=== PATIENT | female | born 1960 | race Caucasian/White ===

== ENCOUNTER 2017-05-03 18:02 | Inpatient (IN) | payer SELFPAY ==
[2017-05-03 19:21] LABS: BASOPHILS 0.1 % (0-2); EOSINOPHILS 0 % (0-7); HEMATOCRIT 47.1 % (36.0-48.0); HEMOGLOBIN 16.2 g/dL (12-16); IMMATURE GRANULOCYTES 0.3 % (0-5); LYMPHOCYTES 7.4 % (15-50); MCH 26.5 pg (26.0-34.0); MCHC 34.4 g/dL (31.0-37.0); MEAN PLATELET VOLUME 10.7 fL (7.4-10.4); MONOCYTES 3.8 % (2-11); NEUTROPHILS 88.4 % (40-80); PLATELET COUNT 235 10x3/uL (130-400); RBC 6.12 10x6/uL (4.00-5.40); RDW 13.7 % (11.5-14.5); WBC 15.4 10x3/uL (4.8-10.8)
[2017-05-03 20:34] LABS: ALBUMIN 3.5 g/dL (3.4-5.0); ALKALINE PHOSPHATASE 213 U/L (46-116); ALT (SGPT) 105 U/L (10-68); BILIRUBIN - TOTAL 0.51 mg/dL (0.2-1.3); CALC OSMOLALITY 275 mosm/kg (275-300); CALCIUM 9.2 mg/dL (8.5-10.1); CARBON DIOXIDE 23.1 mmol/L (21.0-32.0); CHLORIDE - SERUM 100 mmol/L (98-107); CREATININE - SERUM 0.7 mg/dL (0.6-1.3); GLUCOSE 156 mg/dL (74-106); POTASSIUM - SERUM 4.7 mmol/L (3.5-5.1); PROTEIN - SERUM 7.4 g/dL (6.4-8.2); SODIUM 136 mmol/L (136-145); UREA NITROGEN 14 mg/dL (7-18); eGFR NON AFRICAN AMERICAN > 90 mL/min (90-120)
[2017-05-03 21:05] LABS: AMYLASE - SERUM 2652 U/L (25-115); LIPASE 14826 U/L (73-393)
[2017-05-03 21:16] LABS: APPEARANCE CLEAR (CLEAR); BILIRUBIN NEGATIVE (NEGATIVE); COLOR YELLOW (YELLOW); GLUCOSE NEGATIVE (NEGATIVE); KETONE NEGATIVE (NEGATIVE); NITRITE NEGATIVE (NEGATIVE); PROTEIN TRACE mg/dL (NEGATIVE); UROBILINOGEN NORMAL (NORMAL)
[2017-05-03 21:17] LABS: EPITHELIAL CELLS 0-5 /hpf (0-5); RED CELLS - URINE 0-5 /hpf (0-5); WHITE CELLS - URINE 0-5 /hpf (0-5)
[2017-05-03 21:18] LABS: BACTERIA MODERATE /hpf (NONE SEEN)
[2017-05-03 21:43] LABS: APTT 32.5 SECONDS (22.8-39.4); INR 1.03 (0.85-1.17); PROTIME 13.4 SECONDS (11.6-15.0)
[2017-05-04] VITALS (7 sets, daily range): BP systolic 121–162; BP diastolic 54–78; BMI 32.4; BMI 32.1
--- NOTE | 2017-05-04 00:03 | NUR ---
RECEIVED REPORT FROM SRINI BARNHART.
[2017-05-04] MEDS ORDERED: PRINIVIL10 MG PO (01:12)
[2017-05-04 04:54] LABS: BASOPHILS 0.1 % (0-2); EOSINOPHILS 0.1 % (0-7); HEMATOCRIT 45.2 % (36.0-48.0); HEMOGLOBIN 15.2 g/dL (12-16); IMMATURE GRANULOCYTES 0.2 % (0-5); LYMPHOCYTES 8.4 % (15-50); MCH 26.4 pg (26.0-34.0); MCHC 33.6 g/dL (31.0-37.0); MCV 78.6 fL (80.0-100.0); MEAN PLATELET VOLUME 10.9 fL (7.4-10.4); MONOCYTES 6.6 % (2-11); NEUTROPHILS 84.6 % (40-80); PLATELET COUNT 205 10x3/uL (130-400); RBC 5.75 10x6/uL (4.00-5.40); RDW 14.1 % (11.5-14.5); WBC 16.2 10x3/uL (4.8-10.8)
[2017-05-04 05:03] LABS: ALBUMIN 3.1 g/dL (3.4-5.0); ALKALINE PHOSPHATASE 180 U/L (46-116); ALT (SGPT) 83 U/L (10-68); BILIRUBIN - TOTAL 0.58 mg/dL (0.2-1.3); CALC OSMOLALITY 283 mosm/kg (275-300); CALCIUM 8.4 mg/dL (8.5-10.1); CARBON DIOXIDE 22.9 mmol/L (21.0-32.0); CHLORIDE - SERUM 105 mmol/L (98-107); GLUCOSE 136 mg/dL (74-106); POTASSIUM - SERUM 4.7 mmol/L (3.5-5.1); PROTEIN - SERUM 6.7 g/dL (6.4-8.2); SODIUM 141 mmol/L (136-145); UREA NITROGEN 14 mg/dL (7-18)
[2017-05-04 05:08] LABS: CREATININE - SERUM 0.5 mg/dL (0.6-1.3); LIPASE 5496 U/L (73-393); eGFR NON AFRICAN AMERICAN > 90 mL/min (90-120)
[2017-05-04 05:09] LABS: AMYLASE - SERUM 1250 U/L (25-115)
--- NOTE | 2017-05-04 12:33 | NUR ---
Patient Name: TUNDE STEVENS Admission Status: ER Accout number: [id number] Admission Date: 05-03-2017 : 1960 Admission Diagnosis: Attending: Aaron Small Current LOS: 1 Anticipated DC Date: 05-04-2017 Planned Disposition: Home Primary Insurance: UNINSURED DISCOUNT PLAN Discharge Planning Comments: * Is the patient Alert and Oriented? Yes 0 * How many steps to enter\exit or inside your home? 4 0 * PCP DR. SMALL 0 * Pharmacy [facility]T ON [address] * Preadmission Environment Home with Family 0 * ADLs Independent 0 * Equipment None 0 * Other Equipment NO MEDICAL EQUIPMENT PROVIDER PREFERENCE 0 * List name and contact numbers for known caregivers / representatives who currently or will assist patient after discharge: EILEEN STEVENS, SPOUSE, 0 * Community resources currently utilized None 0 * Please name any agencies selected above. NONE 0 * Additional services required to return to the preadmission environment? No * Can the patient safely return to the preadmission environment? Yes 0 * Has this patient been hospitalized within the prior 30 days at any hospital? No 0 CM MET WITH PT IN ROOM TO DISCUSS DISCHARGE PLANNING AND NEEDS. PT REPORTS LIVING AT HOME INDEPENDENTLY WITH HER SPOUSE. PT HAS NO MEDICAL EQUIPMENT AND NO OUTSIDE SERVICES ASSISTING IN THE HOME. CM DISCUSSED AVAILABILITY OF HOME HEALTH, REHAB SERVICES AND MEDICAL EQUIPMENT. PT DENIES DISCHARGE NEEDS, REPORTS HER SPOUSE WILL PICK HER UP FOR DISCHARGE HOME. PT REPORTS HAVING NO CURRENT INSURANCE AND SHE AND HER SPOUSE ARE NOW SHOPPING FOR AN INSURANCE POLICY. CM OFFERED TO HAVE FINANCIAL COUNSELOR MEET WITH PT TO EXPLORE OPTIONS SUCH POSSIBLE MEDICAID FOR THIS STAY. PT IN AGREEMENT WITH THIS, CM CALLED TRUDY OLIVERA, [phone], REQUESTED FINANCIAL COUNSELOR TO MEET WITH PT. PT NOTIFIED WHO DENIES FURTHER DISCHARGE NEEDS. CM TO FOLLOW AND ASSIST NEEDED. Dental Detail Representative: Garth Norris
--- NOTE | 2017-05-04 14:11 | NUR ---
ALERT AND ORIENTED X4. RESTING IN BED. FAMILY AT BEDSIDE. DILAUDID CIGAR HEAD STRINGER INFUSING ORDERED. DENIES SOB. DENIES ANY NEEDS. BED LOCKED AND LOW. CALL LIGHT IN REACH. TWO SIDERAILS UP.
--- NOTE | 2017-05-04 16:28 | NUR ---
CALL REGARDING ELEVATED BP-162/78. HOME MEDICATION NO RESTARTED. HOLD HOME MEDICATIONS PER AND USE PRN HTN MEDICATION IF BP CONTINUES TO INCREASE. ALERT AND ORIENTED X4. RESTING IN BED. DENIES ANY NEEDS. BED LOCKED AND LOW. CALL LIGHT IN REACH. TWO SIDERAILS UP.
--- NOTE | 2017-05-04 17:15 | NUR ---
DR. DELGADO AT BEDSIDE. PLAN TO MONITOR PANCREATIC ENZYMES, IF CONTINUE TO DECREASE POSSIBLE GALLBLADDER REMOVAL WEDNESDAY OR WEDNESDAY. DENIES ANY NEEDS AT THIS TIME. CONTINUE PLAN OF CARE AND SAFETY PRECAUTIONS.
--- NOTE | 2017-05-04 19:35 | NUR ---
ASSESSMENT COMPLETE, A&O. RESPERATIONS EVEN ON O2 AT 2 LITER VIA NC. IV TO RIGHT AC WITH D5W WITH 20 K INFUSING AT 75 CC/HR, AND DILAUDID DEBRANDER IN USE FOR PAIN CONTROL. NO NEEDS EXPRESSED AT THIS TIME, BED LOW, CL IN REACH.
--- NOTE | 2017-05-04 22:55 | NUR ---
JUSTYN FROM LAB AT BED SIDE TO OBTIAN BLOOD CULTURES X 2.
--- NOTE | 2017-05-05 00:30 | NUR ---
DIALUDID MICA INSPECTOR TURNED OFF UNTIL PIPIDA SCAN IS COMPELTE.
[2017-05-05 00:46] VITALS: BP 146/47
[2017-05-05 04:25] VITALS: BP 161/83
[2017-05-05 04:43] LABS: HEMATOCRIT 43.4 % (36.0-48.0); HEMOGLOBIN 14.6 g/dL (12-16); MCH 26.3 pg (26.0-34.0); MCHC 33.6 g/dL (31.0-37.0); MCV 78.1 fL (80.0-100.0); MEAN PLATELET VOLUME 10.8 fL (7.4-10.4); PLATELET COUNT 198 10x3/uL (130-400); RBC 5.56 10x6/uL (4.00-5.40); RDW 14.3 % (11.5-14.5); WBC 27.7 10x3/uL (4.8-10.8)
[2017-05-05 04:57] LABS: ALBUMIN 2.9 g/dL (3.4-5.0); ALKALINE PHOSPHATASE 184 U/L (46-116); ALT (SGPT) 89 U/L (10-68); CALC OSMOLALITY 278 mosm/kg (275-300); CALCIUM 8.6 mg/dL (8.5-10.1); CARBON DIOXIDE 24.9 mmol/L (21.0-32.0); CHLORIDE - SERUM 101 mmol/L (98-107); CHOL - HDL RATIO 2.5 ratio (2.3-4.1); CHOLESTEROL, TOTAL 108 mg/dL (0-200); GLUCOSE 167 mg/dL (74-106); HDL CHOLESTEROL 44 mg/dL (32-96); LDL CHOLESTEROL 53 mg/dL (0-100); LDL-HDL RATIO 1.2 ratio (1.5-3.5); MAGNESIUM - SERUM 1.9 mg/dL (1.8-2.4); PHOSPHOROUS 3.2 mg/dL (2.5-4.9); POTASSIUM - SERUM 4.2 mmol/L (3.5-5.1); SODIUM 137 mmol/L (136-145); TRIGLYCERIDE 55 mg/dL (30-200); UREA NITROGEN 14 mg/dL (7-18); eGFR NON AFRICAN AMERICAN 78 mL/min (90-120)
[2017-05-05 04:59] LABS: LYMPHOCYTES 5 % (15-50); MONOCYTES 3 % (2-11); NEUTROPHILS 90 % (40-80); PLATELET ESTIMATE NORMAL
[2017-05-05 05:01] LABS: CREATININE - SERUM 0.8 mg/dL (0.6-1.3); LIPASE 1875 U/L (73-393)
[2017-05-05 05:02] LABS: AMYLASE - SERUM 621 U/L (25-115)
--- NOTE | 2017-05-05 06:35 | NUR ---
PT RESTING IN BED WITH NO DISTRESS. CALL LIGHT IN REACH. CPOC.
[2017-05-05 08:04] VITALS: BP 141/61
--- NOTE | 2017-05-05 13:00 | NUR ---
REPORT OFF TO BRONWYN INGRAM TO RESUME PLAN OF CARE.
--- NOTE | 2017-05-05 14:35 | NUR ---
INTEGRITY ANALYST PUMP SAYING NEAR THE END, DID GET HALLIE RN TO LOOK AT THE PUMP AND SHE WAS NOT ABLE TO FIND THE PROBLEM, BUT SHE FOUND THE SOLUTION. DID GET ANOTHER VIAL OF DILAUDID AND RESTARTED. PATIENT ASKED ABOUT EATING OR AT LEAST ICE CHIPS, LAKE MULLER SAYS "NO, NOT YET, WE'RE WAITING FOR RESULTS" PATIENT IS TOLD THIS INFORMATION AND UNDERSTANDS.
[2017-05-05 15:31] VITALS: BP 131/58
[2017-05-05 19:00] VITALS: BP 118/51
--- NOTE | 2017-05-05 20:35 | NUR ---
MAG CITRATE 150 MG GIVEN WITH CUP OF ICE. CONSENTS SIGNED FOR CHOLECYSTECTOMY TO BE DONE ON 05/06/[address] DELGADO. WITTNESSED BY SECOND NURSE AND PLACED IN CHART, PT DENIES OTHER NEEDS, BED LOW, CL IN REACH. FAMILY AT BED SIDE.
[2017-05-06] VITALS (7 sets, daily range): BP systolic 124–170; BP diastolic 62–90
--- NOTE | 2017-05-06 00:11 | NUR ---
RESTING WITH EYES CLOSED, RESPERATIONS EVEN, NO S/S DISTRESS NOTED.
--- NOTE | 2017-05-06 04:20 | NUR ---
IV TO RIGHT AC OUT, TIP INTACT. RESITED IV TO LEFT FOREARM, 20 GAUGE, PT TOLERATED WELL.
--- NOTE | 2017-05-06 04:58 | NUR ---
CALL LIGHT IN REACH. WILL CONTINUE WITH PLAN OF CARE.
[2017-05-06 05:26] LABS: BASOPHILS 0.1 % (0-2); EOSINOPHILS 0 % (0-7); HEMATOCRIT 40.4 % (36.0-48.0); HEMOGLOBIN 13.6 g/dL (12-16); IMMATURE GRANULOCYTES 0.3 % (0-5); LYMPHOCYTES 7.2 % (15-50); MCH 26.5 pg (26.0-34.0); MCHC 33.7 g/dL (31.0-37.0); MCV 78.6 fL (80.0-100.0); MEAN PLATELET VOLUME 10.9 fL (7.4-10.4); MONOCYTES 7.9 % (2-11); NEUTROPHILS 84.5 % (40-80); PLATELET COUNT 185 10x3/uL (130-400); RBC 5.14 10x6/uL (4.00-5.40); RDW 14.1 % (11.5-14.5); WBC 20.4 10x3/uL (4.8-10.8)
[2017-05-06 05:41] LABS: ALBUMIN 2.3 g/dL (3.4-5.0); ALKALINE PHOSPHATASE 165 U/L (46-116); CALC OSMOLALITY 268 mosm/kg (275-300); CALCIUM 8.5 mg/dL (8.5-10.1); CHLORIDE - SERUM 97 mmol/L (98-107); GLUCOSE 143 mg/dL (74-106); LIPASE 186 U/L (73-393); MAGNESIUM - SERUM 2.1 mg/dL (1.8-2.4); PROTEIN - SERUM 6.3 g/dL (6.4-8.2); SODIUM 133 mmol/L (136-145); UREA NITROGEN 14 mg/dL (7-18)
[2017-05-06 06:08] LABS: ALT (SGPT) 48 U/L (10-68); AMYLASE - SERUM 133 U/L (25-115); CARBON DIOXIDE 31.6 mmol/L (21.0-32.0); CREATININE - SERUM 0.5 mg/dL (0.6-1.3); PHOSPHOROUS 2.3 mg/dL (2.5-4.9); eGFR NON AFRICAN AMERICAN > 90 mL/min (90-120)
--- NOTE | 2017-05-06 06:27 | NUR ---
PREOP MEDS GIVEN ORDERED.
--- NOTE | 2017-05-06 07:18 | NUR ---
PT SITTING UP IN BED WAITING ON SURGERY TO GET HERE DENIES ANY NEEDS WILL CONT TO MONITOR
--- NOTE | 2017-05-06 11:09 | NUR ---
PT BACK FROM PROCEDURE. ALERT AND ORIENTED VS ARE WNL WILL CONT TO MONITOR
--- NOTE | 2017-05-06 13:29 | NUR ---
Nutrition Follow Up: Pt is s/p lap ava and liver biopsy. Diet has been advanced to clear liquids. Wt stable. No BM since admit. Meds and labs reviewed. Rec continue advancing EDNA as medically feasible. RD following.
--- NOTE | 2017-05-06 14:03 | CN ---
PATIENT NAME:TUNDE STEVENS MEDICAL RECORD: [id number] : 60 LOCATION:D. D.2111 ADMIT DATE: 05/03/17 ACCOUNT: [id number] CONSULTING PHYSICIAN: MIKAELA DELGADO MD REFERRING PHYSICIAN: JOHANNA SMALL DO DATE OF CONSULTATION: 05/04/2017 Consultation Note Addendum CHIEF COMPLAINT: Pancreatitis. HISTORY OF PRESENT ILLNESS: The patient has pancreatitis. She has undergone a CT scan. She has undergone an abdominal ultrasound. The abdominal ultrasound revealed no gallstones. We discussed the different etiologies for pancreatitis including alcohol use. She does not drink alcohol. Elevated calcium levels. She knows of no elevation of her calcium levels. Elevated triglycerides, which she states that she does not have. Iatrogenic factors; trauma, idiopathic as well as gallstone pancreatitis and medication-induced pancreatitis. She thinks that she likely has none of these. I am going to order a PIPIDA scan on her to check for gallbladder function. She has had some episodes of intermittent abdominal pain over the past few months and it sounds more like biliary colic than pancreatitis, although certainly she has pancreatitis now. Symptoms came on several days ago. They came on gradually. They have decreased in intensity. This is a consultation note addendum. For the typed portion of the consult note, please see the chart. This includes the past medical and surgical history, allergies, social history, current medications as well as family history. REVIEW OF SYSTEMS: Currently, no fever, no chills, no chest pain, no shortness of breath. Positive for abdominal pain. Positive for back pain. Review of systems is negative other than as is described above. PHYSICAL EXAMINATION: GENERAL: The patient does not appear acutely ill. She does not appear chronically ill. The entire physical examination was performed in the presence of a female nurse. VITAL SIGNS: Reviewed. HEAD: External ears appear normal. EYES: Extraocular movements are intact. NECK: Trachea is midline. CHEST: No intercostal retractions. PULMONARY: Nonlabored, no stridor. ABDOMEN: Epigastric tenderness with guarding. No peritonitis to percussion. EXTREMITIES: No peripheral cyanosis. INTEGUMENT: No rash, no ulcerations. PSYCHIATRIC: Normal affect. NEUROLOGIC: Nonfocal, no lethargy. The patient answers questions appropriately, moves all extremities well. BACK: No thoracic kyphosis. LYMPHATICS: No lymphangitic streaking of the exposed extremities. IMPRESSION: Pancreatitis of uncertain etiology. PLAN: A PIPIDA scan with ejection fraction tomorrow. CONSULT REPORT [id number] TUNDE STEVENS TRANSINT:[id number] Voice Confirmation ID: [id number] DOCUMENT ID: [id number] MIKAELA DELGADO MD at 1403 CC: [id number] DICTATION DATE: 05/06/17 1113 OXYGEN EQUIPMENT AIDE: 05/06/17 1216 ADM IN [place] [id number] [place] [id number]
--- NOTE | 2017-05-06 14:03 | PN ---
PATIENT:TUNDE STEVENS MEDICAL RECORD: [id number] LOCATION:D.M2 D.211 ADMISSION DATE: 05/03/17 PROGRESS NOTE DATE OF SERVICE: 05/05/2017 ADDENDUM CHIEF COMPLAINT: Better. I reviewed the PIPIDA scan results. The patient did have some reproduction of symptoms with ingestion of Ensure. She also had low ejection fraction. We discussed that microcrystalline disease or sludge can cause pancreatitis. She is elected for laparoscopic cholecystectomy. The risks, possible complications, and alternatives to the procedure were explained to the patient. She elects to proceed. Her amylase and lipase are trending down. Symptoms are improved. Palpation aggravates. Nothing alleviates. The pain radiates into the back. This is a progress note addendum. For the typed portion of the progress note, please see the chart. This would include the past medical and surgical history, allergies, current medications, family history. REVIEW OF SYSTEMS: Currently, no nausea, no vomiting, no fever, no chills, no chest pain, no shortness of breath. Positive for abdominal pain. Review of systems is negative other than as is described above. PHYSICAL EXAMINATION: GENERAL: The patient does not appear acutely ill. She does not appear chronically ill. The entire physical examination was performed in the presence of a female nurse. VITAL SIGNS: Reviewed. HEAD: External ears appear normal. EYES: Extraocular movements are intact. NECK: Trachea is midline. CHEST: No intercostal retractions. PULMONARY: Nonlabored, no stridor. ABDOMEN: Epigastric tenderness, no guarding. No peritonitis to percussion. EXTREMITIES: No peripheral cyanosis. INTEGUMENT: No rash, no ulcerations. PSYCHIATRIC: Normal affect. NEUROLOGIC: Nonfocal, no lethargy. The patient answers questions appropriately, moves all extremities well. BACK: No thoracic kyphosis. LYMPHATIC: No lymphangitic streaking of the exposed extremities. IMPRESSION: 1. Pancreatitis of unknown etiology. 2. Biliary dyskinesia. PROCEDURE: Laparoscopic cholecystectomy, intraoperative cholangiography, and possible liver biopsy. The risks, possible complications, and alternatives to the procedure were explained to the patient. She elects to proceed. The discussion specifically included, but was not limited to, bleeding requiring an PROGRESS NOTE [id number] TUNDE STEVENS emergency reoperation, infection, intestinal injury, common bile duct injury. TRANSINT:[id number] Voice Confirmation ID: [id number] DOCUMENT ID: [id number] MIKAELA DELGADO MD at 1403 CC: [id number] DICTATION DATE: 05/06/17 112 WINE STEWARD/STEWARDESS: 05/06/17 1358 ADM IN [place] [id number] [place] [id number]
--- NOTE | 2017-05-06 14:03 | OP ---
PATIENT NAME: TUNDE STEVENS MEDICAL RECORD: [id number] :60 LOCATION:D.M2 D.2111 ADMISSION DATE:05/03/17 SURGEON: MIKAELA DELGADO MD DATE OF OPERATION: 05/06/2017 PREOPERATIVE DIAGNOSES: 1. Biliary dyskinesia. 2. Pancreatitis of unknown etiology. POSTOPERATIVE DIAGNOSES: 1. Pancreatitis, likely gallstone pancreatitis as gallstones were present within the gallbladder. 2. Biliary dyskinesia. 3. Hepatomegaly. 4. Bilious ascites. PROCEDURES: 1. Laparoscopic cholecystectomy. 2. Intraoperative cholangiography without immediate surgeon interpretation. 3. An 18-gauge core needle liver biopsies. SURGEON: Mikaela Delgado MD SENIOR GRANT WRITER: None. BLOOD LOSS: Minimal. ANESTHESIA: General. COMPLICATIONS: None. The risks, possible complications and alternatives to procedure were explained to the patient. She elects to proceed. OPERATIVE COURSE: The patient was conveyed to the operating room electively on 05/06/2017. General anesthesia was induced by the anesthesia staff. The abdomen was sterilely prepped and draped. A small skin yadira was accomplished in the left upper quadrant. A Veress needle was inserted through the skin yadira into the peritoneal cavity. CO2 insufflation was begun. Once a sufficient pneumoperitoneum had been achieved, a 5-mm trocar was inserted through an incision in the right upper quadrant. Under direct vision utilizing the television camera, a 12-mm trocar was inserted through an incision at the umbilicus. A 5-mm trocar was inserted through an incision in the epigastrium. Another 5-mm trocar was inserted through an incision far laterally in the right upper quadrant. An abdominal survey was undertaken. Bilious ascites was aspirated. I noted no purulence. There was some saponification of the abdominal wall consistent with pancreatitis. Under laparoscopic guidance, I percutaneously accessed the right upper quadrant utilizing an 18-gauge core needle liver biopsy device. Cores were obtained over the convexity of the liver. The biopsy sites were made hemostatic with the electrocautery. OPERATIVE REPORT [id number] TUNDE STEVENS The indication for the liver biopsy was hepatomegaly. I advanced a cholangiogram trocar. I punctured the fundus of the gallbladder. I aspirated bile. I then injected dye. Under real time fluoroscopy, static fluoroscopic images were obtained. These were sent to the radiologist for interpretation. The radiologist called back and stated that although there was some tortuosity to the common bile duct, she noted no filling defects. The cholangiogram trocar was removed. The gallbladder was grasped and retracted cephalad. The infundibulum was grasped and retracted laterally. Two cystic arteries were identified. These were clipped multiply and divided between clips. I started dissecting the triangle of Calot further. Unfortunately, the gallbladder was very friable, poor quality, and tore easily. I had to amputate the gallbladder at the infundibulum. I grasped the infundibulum and tried to place an Endo-JUAN JOSE stapler across the infundibulum, but the infundibulum continued to tear, so I abandoned this approach. It was prior to this time that a 12-mm trocar was changed out for the epigastric 5-mm trocar. I took a PDS Endoloop. I was able to grasp the infundibulum of the gallbladder. I was able then to tighten down the PDS Endoloop around the infundibulum. I was satisfied with the placement of an Endoloop. I then cut the Endoloop suture. I then dissected the gallbladder off of the liver bed. Meticulous hemostasis was achieved with the electrocautery. The gallbladder was placed within a bag retrieval device. The gallbladder was withdrawn through the umbilical fascial defect. The 12-mm trocars were placed and the abdomen reinsufflated. I irrigated and aspirated in the right upper quadrant. There was no bleeding even at low pressure of 8. The Liborio-Caitie suture closure device and 0 Vicryl sutures were used to close the umbilical fascial defect as well as the 12-mm trocar fascial defect in the epigastrium. A 10-Anguillan round Ethan drain was advanced down through the lateral most trocar. All the trocars were removed and the abdomen desufflated. The drain was sutured to skin with a 4-0 nylon. The skin at the umbilicus was closed with interrupted intracuticular 4-0 Vicryl sutures and then Dermabond. The other skin incisions were closed with interrupted intracuticular 4-0 Vicryls. Benzoin and Steri-Strips were applied. The patient was then extubated and conveyed to the post-anesthesia care unit where she was in stable condition. If she does well and does not pump up the amylase and lipase, I think she can likely be dismissed home tomorrow. TRANSINT:[id number] Voice Confirmation ID: [id number] DOCUMENT ID: [id number] OPERATIVE REPORT [id number] TUNDE STEVENS [place] MD at 1403 CC: [id number] DICTATION DATE: 05/06/17 1144 WATCH ASSEMBLER: 05/06/17 1229 ADM IN [facility] [address] [place] [id number]
--- NOTE | 2017-05-06 17:38 | NUR ---
PT SITTING UP IN BED FAMILY AT BEDSIDE DENIES NEEDS
--- NOTE | 2017-05-06 19:40 | NUR ---
STONE CIRCULAR SAWYER AT BEDSIDE TO OBTAIN VITALS, CALL LIGHT IN REACH. WILL CONTINUE WITH PLAN OF CARE.
--- NOTE | 2017-05-06 21:28 | NUR ---
PATIENT IS ALERT LYING IN BED, CALL LIGHT IN REACH. IV IS PATENT. DENIES NEEDS AT THIS TIME.
[2017-05-07] VITALS: BP 154/86
[2017-05-07 04:00] VITALS: BP 153/90
[2017-05-07 04:37] LABS: BASOPHILS 0.1 % (0-2); EOSINOPHILS 0.6 % (0-7); HEMATOCRIT 39.1 % (36.0-48.0); HEMOGLOBIN 13.1 g/dL (12-16); IMMATURE GRANULOCYTES 0.4 % (0-5); LYMPHOCYTES 9.9 % (15-50); MCH 26.2 pg (26.0-34.0); MCHC 33.5 g/dL (31.0-37.0); MCV 78.2 fL (80.0-100.0); MEAN PLATELET VOLUME 10.5 fL (7.4-10.4); MONOCYTES 10.3 % (2-11); NEUTROPHILS 78.7 % (40-80); PLATELET COUNT 205 10x3/uL (130-400); RDW 13.8 % (11.5-14.5); WBC 17.9 10x3/uL (4.8-10.8)
[2017-05-07 05:07] LABS: ALBUMIN 2.1 g/dL (3.4-5.0); ALKALINE PHOSPHATASE 152 U/L (46-116); ALT (SGPT) 44 U/L (10-68); BILIRUBIN - TOTAL 0.55 mg/dL (0.2-1.3); CALC OSMOLALITY 259 mosm/kg (275-300); CALCIUM 8.4 mg/dL (8.5-10.1); CARBON DIOXIDE 31.6 mmol/L (21.0-32.0); CHLORIDE - SERUM 95 mmol/L (98-107); CREATININE - SERUM 0.6 mg/dL (0.6-1.3); GLUCOSE 134 mg/dL (74-106); LIPASE 57 U/L (73-393); POTASSIUM - SERUM 4.5 mmol/L (3.5-5.1); PROTEIN - SERUM 6.1 g/dL (6.4-8.2); SODIUM 129 mmol/L (136-145); UREA NITROGEN 11 mg/dL (7-18); eGFR NON AFRICAN AMERICAN > 90 mL/min (90-120)
[2017-05-07 05:15] LABS: AMYLASE - SERUM 52 U/L (25-115)
--- NOTE | 2017-05-07 07:18 | NUR ---
PT SITTING UP IN BED C/O NAUSEA. WILL GIVE ZOFRAN DENIES OTHER NEEDS WILL CONT TO MONITOR
[2017-05-07 08:03] VITALS: BP 159/81
--- NOTE | 2017-05-07 09:21 | NUR ---
PT C/O NAUSEA AND REFLUX CALLED DR CORONA BECAUSE ZOFRAN WAS GIVEN AT 0730 AND NOT HELPING. SAID TO REPEAT AMYLASE AND LIPASE AND DO KUB. DONE. DILAUDID MIXER BLENDER HAS FALLEN OFF THE EMAR CALLED DR DELGADO AND GOT ORDER FOR ORAL NORCO INSTEAD OF MIXER BLENDER. WILL ORDER
[2017-05-07 10:16] LABS: AMYLASE - SERUM 49 U/L (25-115); LIPASE 55 U/L (73-393)
--- NOTE | 2017-05-07 10:40 | NUR ---
PT PIV INFILTRATED. DC WITH CATH TIP INTACT. PT GETTING IN THE SHOWER THEN WILL RESITE.
--- NOTE | 2017-05-07 11:14 | NUR ---
22 G X 1 STICK TO RIGHT AC.
--- NOTE | 2017-05-07 11:17 | NUR ---
ATTEMPTED TO RESITE PT X1 STICK UNSUCCESSFUL. WILSON BARNHART SITED PT TO R AC 22G X1 STICK. DSNG ADHERED TO SKIN SWAB CAPS IN USE. SIGNED AND DATED.
[2017-05-07 12:38] VITALS: BP 145/51
[2017-05-07 16:14] VITALS: BP 164/70
--- NOTE | 2017-05-07 17:25 | NUR ---
SCOP PATCH NOT ON FLOOR. PHARM SUPPOSED TO BE BRINGING UP...
[2017-05-07 20:00] VITALS: BP 129/65
[2017-05-08] VITALS: BP 140/69
--- NOTE | 2017-05-08 01:45 | NUR ---
PT CURRENTLY UP TO BATHROOM WITH JERALD ADAMS. PT IS IN NO ACUTE DISTRESS, AWAKE AND ALERT. FAMILY AT BEDSIDE. CONTINUE TO MONITOR CLOSELY.
[2017-05-08 04:00] VITALS: BP 141/53
[2017-05-08 05:00] LABS: BASOPHILS 0.1 % (0-2); EOSINOPHILS 1.7 % (0-7); IMMATURE GRANULOCYTES 0.6 % (0-5); LYMPHOCYTES 8.3 % (15-50); MCHC 33.3 g/dL (31.0-37.0); MCV 78.1 fL (80.0-100.0); MEAN PLATELET VOLUME 10.3 fL (7.4-10.4); MONOCYTES 10.3 % (2-11); PLATELET COUNT 200 10x3/uL (130-400); RBC 4.61 10x6/uL (4.00-5.40); RDW 13.6 % (11.5-14.5); WBC 13.5 10x3/uL (4.8-10.8)
[2017-05-08 05:24] LABS: CALC OSMOLALITY 260 mosm/kg (275-300); CALCIUM 8.1 mg/dL (8.5-10.1); CARBON DIOXIDE 29.5 mmol/L (21.0-32.0); CHLORIDE - SERUM 95 mmol/L (98-107); CREATININE - SERUM 0.5 mg/dL (0.6-1.3); GLUCOSE 113 mg/dL (74-106); PHOSPHOROUS 2.5 mg/dL (2.5-4.9); POTASSIUM - SERUM 4.4 mmol/L (3.5-5.1); SODIUM 130 mmol/L (136-145); UREA NITROGEN 10 mg/dL (7-18); eGFR NON AFRICAN AMERICAN > 90 mL/min (90-120)
--- NOTE | 2017-05-08 07:00 | NUR ---
RECEIVED REPORT. ASSUMED CARE OF PATIENT. CALL LIGHT WITHIN REACH. PATIENT AMBULATING AROUND ROOM. RESP EVEN AND UNLABORED. DARLING DRAIN TO RIGHT UPPER SITE, S/P CHOLECYSTECTOMY. DENIES NEEDS. NO DISTRESS.
--- NOTE | 2017-05-08 07:30 | NUR ---
25 CC EMPTIED FROM DARLING DRAIN. CARE OF DRAIN DISCUSSED WITH PATIENT. VERBALIZED HER UNDERSTANDING.
[2017-05-08 08:00] VITALS: BP 143/53
--- NOTE | 2017-05-08 11:28 | NUR ---
PATIENT OOB AMBULATING IN ROOM. NO DISTRESS. HERE FOR ROUNDS. CALL LIGHT PLACED WITHIN REACH.
[2017-05-08 12:00] VITALS: BP 134/45
--- NOTE | 2017-05-08 12:14 | NUR ---
CALLED PHARMACY AND SPOKE TO SEVEN. INFORMED SEVEN THAT I SPOKE WITH TAB ABOUT 2 HOURS AGO AND SHE STATED SHE WOULD BRING ZOFRAN DRIP UP FOR PATIENT AND IT STILL IS NOT AVAILABLE AND THIS FINANCIAL REPORTING ADVISOR DOES NOT HAVE ENOUGH TO LAST UNTIL NEXT DOSE DUE. SEVEN STATES HE WILL BRING SOME UP. THANKED SEVEN.
[2017-05-08 15:59] VITALS: BP 105/63
--- NOTE | 2017-05-08 16:49 | NUR ---
PAGED AND INFORMED THAT PATIENT IS HAVING INDIGESTION DESPITE GETTING PEPCID IV BID. NEW ORDER RECEIVED FOR YENNY BLANCO. THANKED .
--- NOTE | 2017-05-08 17:15 | NUR ---
DARLING DRAIN REMOVED PER ORDERS FROM . SUTURES REMOVED FROM SKIN, DARLING DRAIN REMOVED WITHOUT DIFFICULTY. NO BLEEDING OR OZZING FROM DRAIN SITE. DRAIN INTACT. 2X2 GAUZE AND TEGADERM APPLIED. PATIENT TOLERATED DRAIN REMOVAL WELL. NO DISTRESS.
--- NOTE | 2017-05-08 18:34 | NUR ---
LYING IN BED WITH ATTENTION TOWARD TELEVISIN. CALL LIGHT WITHIN REACH. NO DISTRESS.
[2017-05-08 20:00] VITALS: BP 120/53
--- NOTE | 2017-05-08 20:45 | NUR ---
IV TO RIGHT AC OUT, TIP INTACT. RESITED IV TO RIGHT FOREARM, 22 GUAUGE, FIRST ATTEMPT. PT TOLERATED WELL. HS MEDS GIVEN AT THIS TIME, BED LOW, CL IN REACH.
--- NOTE | 2017-05-08 23:55 | NUR ---
IN BED WATCHING TV, CIVIL STRUCTURAL DESIGNER IN USE FOR PAIN CONTROL. DENIES OTHER NEEDS.
[2017-05-09] VITALS: BP 122/42
--- NOTE | 2017-05-09 01:10 | NUR ---
PT INCONTINENT OF BOWEL, UP WITH ASSIST TO SHOWER. LINENS CHANED. BACK TO BED WITH ASSIST, IV FLUIDS AND BSA OFFICER PUMP RECONNECTED.
[2017-05-09 04:00] VITALS: BP 133/45
--- NOTE | 2017-05-09 04:31 | NUR ---
UP WITH ASSIST TO BR.
[2017-05-09 05:25] LABS: BASOPHILS 0.1 % (0-2); EOSINOPHILS 2.4 % (0-7); HEMOGLOBIN 12.3 g/dL (12-16); IMMATURE GRANULOCYTES 1.3 % (0-5); LYMPHOCYTES 9.5 % (15-50); MCH 26.2 pg (26.0-34.0); MCHC 33.2 g/dL (31.0-37.0); MCV 78.7 fL (80.0-100.0); MEAN PLATELET VOLUME 10.1 fL (7.4-10.4); MONOCYTES 9.1 % (2-11); NEUTROPHILS 77.6 % (40-80); PLATELET COUNT 222 10x3/uL (130-400); RDW 13.4 % (11.5-14.5); WBC 14.8 10x3/uL (4.8-10.8)
[2017-05-09 05:41] LABS: CALCIUM 8.4 mg/dL (8.5-10.1); CARBON DIOXIDE 30.6 mmol/L (21.0-32.0); CHLORIDE - SERUM 99 mmol/L (98-107); CREATININE - SERUM 0.5 mg/dL (0.6-1.3); GLUCOSE 109 mg/dL (74-106); SODIUM 135 mmol/L (136-145); eGFR NON AFRICAN AMERICAN > 90 mL/min (90-120)
[2017-05-09 05:43] LABS: CALC OSMOLALITY 268 mosm/kg (275-300); POTASSIUM - SERUM 3.7 mmol/L (3.5-5.1); UREA NITROGEN 6 mg/dL (7-18)
--- NOTE | 2017-05-09 07:00 | NUR ---
RECEIVED REPORT. ASSUMED CARE OF PATIENT. CALL LIGHT WITHIN REACH. AWAKE/ALERT, RESP EVEN AND UNLABORED. NO DRAINAGE FROM DARLING DRAIN REMOVAL FROM RIGHT UPPER ABD YESTERDAY. DENIES NEEDS. FINANCIAL SUPERVISOR PUMP PATENT. NO DISTRESS.
[2017-05-09 08:00] VITALS: BP 132/47
--- NOTE | 2017-05-09 14:58 | NUR ---
PATIENT SITTING UP IN BED. ASSISTED PATIENT WITH CLEANSING OFF BEDSIDE TABLE. DENIES NEEDS AT THIS TIME. NO DISTRESS.
[2017-05-09 16:00] VITALS: BP 105/50
--- NOTE | 2017-05-09 19:47 | NUR ---
RESUMED CARE OF PT, LYING IN BED RESPIRATIONS EVEN AND UNLABORED ON ROOM AIR. FAMILY AT BEDSIDE. RIGHT FOREARM INFUSING D5NS WITH 20k @ 75, ZOFRAN @ 4.7, AND DILAUDID CHILDREN'S MINISTRY DIRECTOR. NO NEEDS AT THIS TIME, CALL LIGHT IN REACH. WILL CONTINUE TO MONITOR. SEE NURSE ASESSSMENT.
[2017-05-09 20:00] VITALS: BP 112/49
--- NOTE | 2017-05-09 22:11 | NUR ---
IV ACCIDENTALLY REMOVED IV TO RIGHT FOREARM. 22 GAUGE TO LEFT UPPERARM X 2 STICKS.
[2017-05-10] VITALS: BP 120/57
--- NOTE | 2017-05-10 00:20 | NUR ---
LYING IN BED WITH EYES CLOSED, RESTING COMFORTABLLY. CALL LIGHT IN REACH.
--- NOTE | 2017-05-10 02:14 | NUR ---
IV REMOVED BY PT, UP TO SHOWER.
--- NOTE | 2017-05-10 02:49 | NUR ---
22 GAUGE X 1 STICK TO RIGHT HAND
[2017-05-10 05:07] LABS: BASOPHILS 0.1 % (0-2); EOSINOPHILS 1.8 % (0-7); HEMOGLOBIN 11.9 g/dL (12-16); IMMATURE GRANULOCYTES 2.3 % (0-5); LYMPHOCYTES 7.7 % (15-50); MCH 25.8 pg (26.0-34.0); MCHC 33.1 g/dL (31.0-37.0); MCV 78.1 fL (80.0-100.0); MONOCYTES 8.6 % (2-11); NEUTROPHILS 79.5 % (40-80); PLATELET COUNT 246 10x3/uL (130-400); RBC 4.61 10x6/uL (4.00-5.40); RDW 13.6 % (11.5-14.5); WBC 14.9 10x3/uL (4.8-10.8)
[2017-05-10 05:12] LABS: CALC OSMOLALITY 272 mosm/kg (275-300); CALCIUM 8.3 mg/dL (8.5-10.1); CARBON DIOXIDE 29.4 mmol/L (21.0-32.0); CHLORIDE - SERUM 99 mmol/L (98-107); CREATININE - SERUM 0.4 mg/dL (0.6-1.3); GLUCOSE 134 mg/dL (74-106); POTASSIUM - SERUM 3.4 mmol/L (3.5-5.1); SODIUM 137 mmol/L (136-145); UREA NITROGEN 5 mg/dL (7-18); eGFR NON AFRICAN AMERICAN > 90 mL/min (90-120)
--- NOTE | 2017-05-10 06:21 | NUR ---
NO CHANGES FROM PREVIOUS ASSESSMENT.
[2017-05-10 07:03] VITALS: BP 144/43
--- NOTE | 2017-05-10 07:12 | NUR ---
AM ROUNDING DONE WITH PATIENT RESTING, AROUSES EASILY. RATES PAIN 4/10, ORTHOPEDIC PHYSICIAN ASSISTANT IN USE. RIGHT HAND SEEN WITH D5NS W 20 K INFUSING AT 75 CC/HR ALONG WITH ZOFRAN AT 4.7 CC/HR. ORTHOPEDIC PHYSICIAN ASSISTANT WITH DILAUDID IN USE. WILL MONITOR.
[2017-05-10] MEDS ORDERED: HYDROCODON-ACE1 EAC7 PO (07:18)
[2017-05-10] MEDS ORDERED: PHENERGAN25 M1 PO (07:19)
--- NOTE | 2017-05-10 07:34 | NUR ---
JOE Noguera PATIENT IS BEING DISCHARGED.
[2017-05-10 08:05] VITALS: BP 142/62
--- NOTE | 2017-05-10 09:54 | NUR ---
UNABLE TO SCAN PATIENT FOR EMAR FOR AM MEDS. I HAVE TRIED TO RE-BOOT THE COMPUTER TWICE AND CALLED [employer] TO WORK ON THIS.
[2017-05-10 11:47] VITALS: BP 148/74
--- NOTE | 2017-05-10 12:20 | NUR ---
PATIENT IS AWAITING RIDE FOR DISCHARGE HOME.
--- NOTE | 2017-05-10 14:28 | NUR ---
1345-SALINE LOCK REMOVED WITH CATH TIP INTACT. VERBRAL AND WRITTEN DISCHARGE INSTRUCIONS GIVEN TO PATIENT ALONG WITH A WRITTEN SCRIPT FOR [place]. DISCHARGED HOME VIA WHEELCHAIR.
== END 2017-05-10 14:28 | disposition home or self-care (01) | DRG 419 ==
LOC: D.ER 18:02 → D.M2 23:40
PROVIDERS: Emergency Medicine; Family Medicine; Surgery; ADMIT Family Medicine
PROC: BF111ZZ Fluoroscopy of Biliary and Pancreatic Ducts using Low Osmolar Contrast (ICD-10-PCS; 2017-05-06)
PROC: 0FT44ZZ Resection of Gallbladder, Percutaneous Endoscopic Approach (ICD-10-PCS; principal; 2017-05-06 07:30)
PROC: 0FB14ZX Excision of Right Lobe Liver, Percutaneous Endoscopic Approach, Diagnostic (ICD-10-PCS; 2017-05-06 07:30)
DX: K85.90 Acute pancreatitis without necrosis or infection, unspecified (principal); I10 Essential (primary) hypertension; K82.8 Other specified diseases of gallbladder; R16.0 Hepatomegaly, not elsewhere classified